=== PATIENT | female | born 1950 | race Caucasian/White ===

== ENCOUNTER 2018-06-07 08:10 | Inpatient (IN) | payer OTHER, MEDICAID, MEDICARE | END 2018-06-09 18:57 | LOC: ER 08:10 → TELE-EAST 09:53 | PROC: 0QSG04Z Reposition Right Tibia with Internal Fixation Device, Open Approach (ICD-10-PCS; principal; 2018-06-08 12:18) | PROC: 0MQQ0ZZ Repair Right Ankle Bursa and Ligament, Open Approach (ICD-10-PCS; 2018-06-08 12:18) | DX: S82.851A Displaced trimalleolar fracture of right lower leg, initial encounter for closed fracture (principal); E80.21 Acute intermittent (hepatic) porphyria; E78.5 Hyperlipidemia, unspecified; J45.909 Unspecified asthma, uncomplicated; I10 Essential (primary) hypertension; G89.4 Chronic pain syndrome; E03.9 Hypothyroidism, unspecified; F41.9 Anxiety disorder, unspecified; F32.9 Major depressive disorder, single episode, unspecified ==